=== PATIENT | female | born 1995 | race Two or more races ===

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

== ENCOUNTER 2018-03-03 17:32 | Emergency (ER) | payer SELFPAY ==
[~2018-03-03] VITALS: Ht 157.5 cm; Wt 78.9 kg
[~2018-03-03 17:32] MED LIST changes: +AUGMENTIN 875-1 EAC1 ORAL
[2018-03-03] MEDS ORDERED: Dicyclomine HCl 10mg/5ml oral soln ORAL ONE (18:15)
[2018-03-03] MEDS ORDERED: Lidocaine 2% Visc 15ml soln ORAL ONE (18:15)
[2018-03-03] MEDS ORDERED: Mylanta II UD 30ml ORAL ONE (18:15)
--- NOTE | 2018-03-03 18:21 | NUR ---
ED Nurse Note: Pt came into the ER for n, v, d x 3 days. Pt is complaiing of 8/10 abdominal pain non radiating. Pt is A+O x4. Ambulatory. Pt states that she believes it is from what she ate.
[2018-03-03 18:28] VITALS: BP 109/73
--- NOTE | 2018-03-03 18:37 | NUR ---
ED Nurse Note: Blood and urine has been collected and sent to lab. Family at the bedside.
[2018-03-03 18:45] LABS: BASOPHILS % (AUTO) 0.7 % (0.0-2.0); EOSINOPHILS % (AUTO) 0.8 % (0.0-3.0); HEMATOCRIT 41.5 % (37.0-47.0); HEMOGLOBIN 13.2 G/DL (12.0-16.0); LYMPHOCYTES % (AUTO) 29.2 % (20.0-45.0); MEAN CORPUSCULAR VOLUME 87 FL (80-99); MONOCYTES % (AUTO) 6.2 % (1.0-10.0); NEUTROPHILS % (AUTO) 63.1 % (45.0-75.0); PLATELET COUNT 301 K/UL (150-450); RED BLOOD COUNT 4.79 M/UL (4.20-5.40); RED CELL DISTRIBUTION WIDTH 13.5 % (11.6-14.8); WHITE BLOOD COUNT 10.5 K/UL (4.8-10.8)
[2018-03-03 18:51] LABS: ANION GAP 11 mmol/L (5-15); BLOOD UREA NITROGEN 9 mg/dL (7-18); CALCIUM 9.6 MG/DL (8.5-10.1); CARBON DIOXIDE 26 MMOL/L (21-32); CHLORIDE 101 MMOL/L (98-107); CREATININE 0.8 MG/DL (0.55-1.30); POTASSIUM 3.9 MMOL/L (3.5-5.1); SODIUM 138 MMOL/L (136-145)
[2018-03-03 18:56] LABS: APPEARANCE,URINE CLEAR; BILIRUBIN, URINE NEGATIVE (NEGATIVE); COLOR,URINE PALE YELLOW; GLUCOSE, URINE (UA) NEGATIVE (NEGATIVE); KETONES,URINE NEGATIVE (NEGATIVE); LEUKOCYTE ESTERASE ,URINE 1+ (NEGATIVE); NITRITE,URINE NEGATIVE (NEGATIVE); PH,URINE 6 (4.5-8.0); PROTEIN,URINE NEGATIVE (NEGATIVE); UROBILINOGEN,URINE NORMAL MG/DL (0.0-1.0)
--- NOTE | 2018-03-03 18:56 | NUR ---
ED Nurse Note: Notified by lab that pt is hcg neg.
[2018-03-03 18:57] LABS: ALANINE AMINOTRANSFERASE 57 U/L (12-78); ALBUMIN 4.1 G/DL (3.4-5.0); ALKALINE PHOSPHATASE 114 U/L (46-116); ASPARTATE AMINO TRANSFERASE 31 U/L (15-37); BILIRUBIN,TOTAL 0.3 MG/DL (0.2-1.0)
--- NOTE | 2018-03-03 19:05 | NUR ---
HAND-OFF: Report given to PATRICK Montalvo.
--- NOTE | 2018-03-03 19:08 | NUR ---
ED Nurse Note: Patient reports a residual pain level of 8/10, ERMD informed.
--- NOTE | 2018-03-03 19:24 | Emergency Room Report ---
History of Present Illness General Chief Complaint: Abdominal Pain Source: Patient Present Illness HPI 22-year-old female presents ED for evaluation. Patient walked in complaining of abdominal pain with vomiting and diarrhea. Started 3 days ago. Pain is cramping, 8 out of 10, nonradiating. Notes vomiting and multiple episodes of diarrhea. Denies chest pain or shortness of breath. Denies fevers or chills. Denies sick contacts or recent travel. Denies recent antibiotic use. No other aggravating relieving factors. Denies any other associated symptoms Allergies: Coded Allergies: No Known Allergies (Unverified , 11/11/14) Patient History Past Medical History: none Past Surgical History: none Pertinent Family History: none Social History: Denies: smoking, alcohol use, drug use Last Menstrual Period: 02/18/2018 Now: No : 0 Para: 0 Immunizations: UTD Reviewed Nursing Documentation: PMH: Agreed; PSxH: Agreed Nursing Documentation-PMH Past Medical History: No Stated History Review of Systems All Other Systems: negative except mentioned in HPI Physical Exam Vital Signs Date Time Temp Pulse Resp B/P (MAP) Pulse Ox O2 Delivery O2 Flow Rate FiO2 03/03/18 17:46 98.4 85 15 117/84 95 Room Air 03/03/18 18:28 100 Sp02 EP Interpretation: reviewed, normal General Appearance: no apparent distress, alert, GCS 15, non-toxic Head: normocephalic, atraumatic Eyes: bilateral eye normal inspection, bilateral eye PERRL ENT: hearing grossly normal, normal pharynx, no angioedema, normal voice Neck: full range of motion, supple/symm/no masses Respiratory: chest non-tender, lungs clear, normal breath sounds, speaking full sentences Cardiovascular #1: regular rate, rhythm, no edema Cardiovascular #2: 2+ carotid (R), 2+ carotid (L), 2+ radial (R), 2+ radial (L) , 2+ dorsalis pedis (R), 2+ dorsalis pedis (L) Gastrointestinal: normal bowel sounds, soft, non-distended, no guarding, no rebound, tenderness Rectal: deferred Genitourinary: normal inspection, no CVA tenderness Musculoskeletal: back normal, gait/station normal, normal range of motion, non- tender Neurologic: alert, oriented x3, responsive, motor strength/tone normal, sensory intact, speech normal Psychiatric: judgement/insight normal, memory normal, mood/affect normal, no suicidal/homicidal ideation Reflexes: 3+ bicep (R), 3+ bicep (L), 3+ tricep (R), 3+ tricep (L), 3+ knee (R) , 3+ knee (L) Skin: normal color, no rash, warm/dry, well hydrated Lymphatic: no adenopathy Medical Decision Making Diagnostic Impression: Primary Impression: Abdominal pain Qualified Codes: R10.30 - Lower abdominal pain, unspecified Additional Impressions: UTI (urinary tract infection) Qualified Codes: N30.00 - Acute cystitis without hematuria Gastroenteritis ER Course Hospital Course 22 yo F presents with abd pain with vomiting, diarrhea Differential diagnosis includes-appendicitis, cholecystitis, small bowel obstruction, gastritis, Clinical course Patient placed on stretcher. After initial history and physical I ordered labs , IV fluids, pain medications, zofran, pepcid Labs - no leukocytosis, electrolytes ok, LFTs normal, UA some bacteria On reassessment patient continues to have pain in suprapubic area. With guarding. CT ordered CT scan some thickening/distension to the bladder Patient does document history of increased urinary frequency. We'll treat clinically as UTI. Safe for discharge and close outpatient follow-up I feel this is a highly complex case requiring extensive working including EKG/ Rhythm strip, Xray/CT/US, Blood/urine lab work, repeat exams while in ED, and administration of strong opiates/narcotics for pain control, admission to hospital or close patient follow up. Diagnosis - abdominal pain, UTI, gastroenteritis Stable and discharged to home with Rx Zofran, Bentyl, zantac, keflex. Followup with PMD. Return to ED if symptoms recur or worsen Labs Test 03/03/18 18:30 White Blood Count 10.5 K/UL (4.8-10.8) Red Blood Count 4.79 M/UL (4.20-5.40) Hemoglobin 13.2 G/DL (12.0-16.0) Hematocrit 41.5 % (37.0-47.0) Mean Corpuscular Volume 87 FL (80-99) Mean Corpuscular Hemoglobin 27.6 PG (27.0-31.0) Mean Corpuscular Hemoglobin Concent 31.9 G/DL (32.0-36.0) Red Cell Distribution Width 13.5 % (11.6-14.8) Platelet Count 301 K/UL (150-450) Mean Platelet Volume 5.7 FL (6.5-10.1) Neutrophils (%) (Auto) 63.1 % (45.0-75.0) Lymphocytes (%) (Auto) 29.2 % (20.0-45.0) Monocytes (%) (Auto) 6.2 % (1.0-10.0) Eosinophils (%) (Auto) 0.8 % (0.0-3.0) Basophils (%) (Auto) 0.7 % (0.0-2.0) Urine Color Pale yellow Urine Appearance Clear Urine pH 6 (4.5-8.0) Urine Specific [place] 1.015 (1.005-1.035) Urine Protein Negative (NEGATIVE) Urine Glucose (UA) Negative (NEGATIVE) Urine Ketones Negative (NEGATIVE) Urine Blood 1+ (NEGATIVE) Urine Nitrite Negative (NEGATIVE) Urine Bilirubin Negative (NEGATIVE) Urine Urobilinogen Normal MG/DL (0.0-1.0) Urine Leukocyte Esterase 1+ (NEGATIVE) Urine RBC 2-4 /HPF (0 - 2) Urine WBC 0-2 /HPF (0 - 2) Urine Squamous Epithelial Cells Few /LPF (NONE/OCC) Urine Bacteria Occasional /HPF (NONE) Sodium Level 138 MMOL/L (136-145) Potassium Level 3.9 MMOL/L (3.5-5.1) Chloride Level 101 MMOL/L (98-107) Carbon Dioxide Level 26 MMOL/L (21-32) Anion Gap 11 mmol/L (5-15) Blood Urea Nitrogen 9 mg/dL (7-18) Creatinine 0.8 MG/DL (0.55-1.30) Estimat Glomerular Filtration Rate > 60 mL/min (>60) Glucose Level 94 MG/DL (74-106) Calcium Level 9.6 MG/DL (8.5-10.1) Total Bilirubin 0.3 MG/DL (0.2-1.0) Aspartate Amino Transf (AST/SGOT) 31 U/L (15-37) Alanine Aminotransferase (ALT/SGPT) 57 U/L (12-78) Alkaline Phosphatase 114 U/L (46-116) Total Protein 8.2 G/DL (6.4-8.2) Albumin 4.1 G/DL (3.4-5.0) Globulin 4.1 g/dL Albumin/Globulin Ratio 1.0 (1.0-2.7) Lipase 110 U/L (73-393) Human Chorionic Gonadotropin, Qual Negative (NEGATIVE) CT/MRI/US Diagnostic Results CT/MRI/US Diagnostic Results : Imaging Test Ordered: CT A/P Impression Essentially unremarkable exam. Apparent bladder wall thickening is probably an artifact of under distention Last Vital Signs Date Time Temp Pulse Resp B/P (MAP) Pulse Ox O2 Delivery O2 Flow Rate FiO2 03/03/18 18:28 97.8 68 18 109/73 100 Room Air 03/03/18 18:28 100 Status: improved Disposition: HOME, SELF-CARE Condition: Stable Scripts Dicyclomine Hcl* (DICYCLOMINE HCL*) 10 Mg Capsule 10 MG PO QID for 5 Days, CAP Prov: Bret Carroll MD 03/03/18 Ranitidine Hcl* (ZANTAC*) 150 Mg Tablet 150 MG ORAL TWICE A DAY, #30 TAB Prov: Bret Carroll MD 03/03/18 Ondansetron Odt* (ZOFRAN ODT*) 4 Mg Tab.rapdis 4 MG BC EVERY 6 HOURS PRN for Nausea & Vomiting, #10 TAB 0 Refills Prov: Bret Carroll MD 03/03/18 Cephalexin* (KEFLEX*) 500 Mg Capsule 500 MG ORAL EVERY 6 HOURS for 7 Days, CAP Prov: Bret Carroll MD 03/03/18 Bret Carroll MD Mar 03, 2018 19:24
[2018-03-03] MEDS ORDERED: Morphine Sulfate 4mg/ml Inj (IV/IM USE ONLY) IVP ONE (19:30)
[2018-03-03] MEDS ORDERED: Isovue-300 100ml vial INJ PRN (19:30)
[2018-03-03] MEDS ORDERED: Ketorolac 30mg Inj IV ONE (19:30)
--- NOTE | 2018-03-03 19:36 | NUR ---
ED Nurse Note: Patient signed consent for contrast and was taken down for CT.
--- NOTE | 2018-03-03 21:31 | NUR ---
ED Nurse Note: Patient reports a return pain level of 4/10 at this time. She is resting quietly with her boyfriend at bedside.
[2018-03-03] MEDS ORDERED: CEPHALEXIN500 MG ORAL (21:43)
[2018-03-03] MEDS ORDERED: DICYCLOMINE HCL10 MG PO (21:43)
[2018-03-03] MEDS ORDERED: ONDANSETRON ODT4 MG BC (21:43)
[2018-03-03] MEDS ORDERED: RANITIDINE HCL150 MG ORAL (21:43)
--- NOTE | 2018-03-03 22:02 | NUR ---
ED Nurse Note: Patient cleared for discharge by Olamide Pope. Patient is awake, alert and oriented x4, patient is ambulatory with steady gait, no s/s of acute discomfort at this time. Patient IV and ID band was removed. Patient verbalized understanding of discharge instructions.
[2018-03-03 22:04] VITALS: BP 11/62
--- NOTE | 2018-03-04 11:07 | Diagnostic Imaging Report ---
Clinical Indication: Abdominal pain Technique: No oral contrast utilized, per emergency room physician request IV administration nonionic contrast. Venous phase spiral acquisition obtained through the abdomen and pelvis. Multiplanar reconstructions were generated. Total dose length product 799.75 mGycm. CTDIvol(s) 15.7 mGy. Dose reduction achieved using automated exposure control Comparison: 11/17/2015 Findings: The appendix is normal. No evidence of diverticulosis or diverticulitis. No small bowel distention. No free or loculated intraperitoneal gas or fluid is evident. Distal esophagus, stomach, duodenum are unremarkable. The liver demonstrates diffuse low-attenuation, consistent with fatty change, as well as more focal low-attenuation in the usual location adjacent to the falciform ligament consistent with more advanced focal fatty change. The gallbladder, bile ducts, pancreas, adrenals, kidneys are unremarkable., Previously demonstrated nephrographic abnormality is no longer evident. The spleen is unremarkable but demonstrates multiple accessory splenules. No retroperitoneal or mesenteric mass or adenopathy. No pelvic mass or adenopathy. Normal uterus and ovaries. Bladder wall appears mildly thickened, probably an artifact of under distention. The included lung bases demonstrate posterior dependent atelectatic changes. Calcified granuloma in the right middle lobe is again demonstrated The bones are unremarkable. Impression: Essentially unremarkable exam. 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 The CT scanner at [facility] is accredited by the [employer] and the scans are performed using protocols designed to limit radiation exposure to as low as reasonably achievable to attain images of sufficient resolution adequate for diagnostic evaluation.
== END 2018-03-03 22:07 | disposition home or self-care (01) ==
LOC: EMR 18:20
DX: R10.9 Unspecified abdominal pain (principal); N39.0 Urinary tract infection, site not specified; K52.9 Noninfective gastroenteritis and colitis, unspecified
CPT/HCPCS: 36415; 74177; 80053; 81003; 83690; 84703; 85025; 96361; 96374; 96375; 99284; J1885; J2270; J2405; Q9967; S0028

== ENCOUNTER 2018-09-16 13:51 | Emergency (ER) | payer SELFPAY ==
[~2018-09-16] VITALS: Ht 157.5 cm; Wt 81.6 kg
[~2018-09-16 13:51] MED LIST changes: +CEPHALEXIN500 MG ORAL; +DICYCLOMINE HCL10 MG PO; +ONDANSETRON ODT4 MG BC; +RANITIDINE HCL150 MG ORAL
[2018-09-16 14:00] VITALS: BP 126/89
[2018-09-16] MEDS ORDERED: DiphenhydrAMINE 50mg/ml Inj IVP ONE (14:15)
[2018-09-16] MEDS ORDERED: Morphine Sulfate 4mg/ml Inj (IV USE ONLY) IVP ONE ×2 (14:15→14:45)
[2018-09-16] MEDS ORDERED: Metoclopramide 10mg/2ml Inj IVP ONE (14:15)
--- NOTE | 2018-09-16 14:19 | Emergency Room Report ---
History of Present Illness General Chief Complaint: Abdominal Pain Source: Patient Present Illness HPI Patient presents with 2 days of suprapubic pain difficulty urinating and vomiting. She does not believe she is as she had a normal.. The pain is severe and she is been vomiting bilious material. Denies fevers or chills. She was drinking alcohol on Sunday but nothing yesterday and Sunday. She rates the pain 10/10 and constant. She does not believe she is . The pain is rated 10/10, aching and pressure and fairly constant. At times it gets worse. She has not taken any medication for the pain. No chest pain, palpitations, diarrhea, shortness of breath, depression, visual changes, headache. Seen in 2014 and [address] February 2018 - no surgical pathology. 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: 08/17/2018 Now: No Reviewed Nursing Documentation: PMH: Agreed; PSxH: Agreed Nursing Documentation-PMH Past Medical History: No Stated History Review of Systems All Other Systems: negative except mentioned in HPI Physical Exam Vital Signs Date Time Temp Pulse Resp B/P (MAP) Pulse Ox O2 Delivery O2 Flow Rate FiO2 09/16/18 13:56 98.1 77 20 126/89 (101) 100 Room Air Sp02 EP Interpretation: reviewed, normal General Appearance: well appearing, GCS 15, non-toxic, mild distress Head: normocephalic Eyes: bilateral eye normal inspection, bilateral eye PERRL, bilateral eye EOMI ENT: moist mucus membranes Neck: supple Respiratory: lungs clear, normal breath sounds Cardiovascular #1: regular rate, rhythm Cardiovascular #2: 2+ radial (R) Gastrointestinal: normal inspection, normal bowel sounds, no mass, non- distended, no guarding, no rebound, tenderness - Suprapubic more right than left Genitourinary: no CVA tenderness, deferred - For ultrasound Musculoskeletal: back normal, gait/station normal, normal range of motion Neurologic: alert, oriented x3, grossly normal Psychiatric: anxious Skin: no rash Medical Decision Making Diagnostic Impression: Primary Impression: Abdominal pain Qualified Codes: R10.31 - Right lower quadrant pain Additional Impressions: Ovarian cysts Mesenteric adenitis ER Course Patient presents with suprapubic pain and vomiting. Differential includes ectopic , threatened miscarriage, gastroenteritis, urinary tract infection, ruptured ovarian cyst, ovarian torsion amongst others. The patient will be evaluated with ultrasound and labs. The patient will be treated with metoclopramide, Benadryl and morphine and IV hydration. WBC elevated. US with ovarian cysts. Pain RLQ now. Need CT abdomen. CT with mesenteric adenitis. Improved pain. Discussed results and outpatient observation. Also discussed the importance of following up with her own doctor. Patient stable for outpatient observation and treatment. Laboratory Tests Test 09/16/18 14:10 09/16/18 15:35 White Blood Count 15.7 K/UL (4.8-10.8) H Red Blood Count 4.45 M/UL (4.20-5.40) Hemoglobin 12.7 G/DL (12.0-16.0) Hematocrit 39.9 % (37.0-47.0) Mean Corpuscular Volume 90 FL (80-99) Mean Corpuscular Hemoglobin 28.6 PG (27.0-31.0) Mean Corpuscular Hemoglobin Concent 31.9 G/DL (32.0-36.0) L Red Cell Distribution Width 12.7 % (11.6-14.8) Platelet Count 344 K/UL (150-450) Mean Platelet Volume 5.7 FL (6.5-10.1) L Neutrophils (%) (Auto) % (45.0-75.0) Lymphocytes (%) (Auto) % (20.0-45.0) Monocytes (%) (Auto) % (1.0-10.0) Eosinophils (%) (Auto) % (0.0-3.0) Basophils (%) (Auto) % (0.0-2.0) Differential Total Cells Counted 100 Neutrophils % (Manual) 79 % (45-75) H Lymphocytes % (Manual) 10 % (20-45) L Monocytes % (Manual) 4 % (1-10) Eosinophils % (Manual) 0 % (0-3) Basophils % (Manual) 0 % (0-2) Band Neutrophils 7 % (0-8) Platelet Estimate Adequate Platelet Morphology Normal Red Blood Cell Morphology Normal Sodium Level 138 MMOL/L (136-145) Potassium Level 3.5 MMOL/L (3.5-5.1) Chloride Level 102 MMOL/L (98-107) Carbon Dioxide Level 23 MMOL/L (21-32) Anion Gap 13 mmol/L (5-15) Blood Urea Nitrogen 13 mg/dL (7-18) Creatinine 0.8 MG/DL (0.55-1.30) Estimate Glomerular Filtration Rate > 60 mL/min (>60) Glucose Level 132 MG/DL (74-106) H Calcium Level 9.6 MG/DL (8.5-10.1) Total Bilirubin 0.5 MG/DL (0.2-1.0) Aspartate Amino Transferase (AST) 30 U/L (15-37) Alanine Aminotransferase (ALT) 49 U/L (12-78) Alkaline Phosphatase 103 U/L (46-116) Total Protein 8.2 G/DL (6.4-8.2) Albumin 4.9 G/DL (3.4-5.0) Globulin 3.3 g/dL Albumin/Globulin Ratio 1.5 (1.0-2.7) Lipase 92 U/L (73-393) Urine Color Pale yellow Urine Appearance Clear Urine pH 8 (4.5-8.0) Urine Specific [place] 1.010 (1.005-1.035) Urine Protein 1+ (NEGATIVE) H Urine Glucose (UA) Negative (NEGATIVE) Urine Ketones 3+ (NEGATIVE) H Urine Blood 4+ (NEGATIVE) H Urine Nitrite Negative (NEGATIVE) Urine Bilirubin Negative (NEGATIVE) Urine Urobilinogen Normal MG/DL (0.0-1.0) Urine Leukocyte Esterase Negative (NEGATIVE) Urine RBC 2-4 /HPF (0 - 2) H Urine WBC 0 /HPF (0 - 2) Urine Squamous Epithelial Cells Occasional /LPF Urine Amorphous Sediment Few /LPF (NONE) H Urine Bacteria Occasional /HPF (NONE) Urine HCG, Qualitative Negative (NEGATIVE) CT/MRI/US Diagnostic Results CT/MRI/US Diagnostic Results #1: Imaging Test Ordered: Pelvic ultrasound Impression Bilateral ovarian cysts CT/MRI/US Diagnostic Results #2: Imaging Test Ordered: abd pelvis Impression Normal appendix. Scattered small mesenteric lymph nodes which are likely reactive. Consideration of mesenteric adenitis. Unremarkable pelvic structures. Last Vital Signs Date Time Temp Pulse Resp B/P (MAP) Pulse Ox O2 Delivery O2 Flow Rate FiO2 09/16/18 19:05 98.0 67 17 101/81 94 Room Air Status: improved Disposition: HOME, SELF-CARE Condition: Improved Scripts Ondansetron Odt* (ZOFRAN ODT*) 4 Mg Tab.rapdis 4 MG BC EVERY 8 HOURS, #6 TAB 0 Refills Prov: Harry Romano MD 09/16/18 Ibuprofen* (MOTRIN*) 600 Mg Tablet 600 MG ORAL Q6H PRN for For Pain, #14 TAB 0 Refills Prov: Harry Romano MD 09/16/18 Tramadol Hcl* (ULTRAM*) 50 Mg Tablet 50 MG ORAL Q6H PRN for For Pain, #10 TAB 0 Refills Prov: Harry Romano MD 09/16/18 Harry Romano MD Sep 16, 2018 14:19
--- NOTE | 2018-09-16 14:30 | NUR ---
ED Nurse Note: pt walked in due to abdominal pain accompanied by vomiting started 7am this morning. pt stated she ate ceviche last night and started to have upset stomach and decided to go home to sleep and when she woke up the pain started. pt is seen by papo. will continue to monitor.
[2018-09-16 14:33] LABS: HEMATOCRIT 39.9 % (37.0-47.0); HEMOGLOBIN 12.7 G/DL (12.0-16.0); MEAN CORPUSCULAR VOLUME 90 FL (80-99); PLATELET COUNT 344 K/UL (150-450); RED BLOOD COUNT 4.45 M/UL (4.20-5.40); RED CELL DISTRIBUTION WIDTH 12.7 % (11.6-14.8); WHITE BLOOD COUNT 15.7 K/UL (4.8-10.8)
[2018-09-16 14:43] LABS: ANION GAP 13 mmol/L (5-15); BLOOD UREA NITROGEN 13 mg/dL (7-18); CALCIUM 9.6 MG/DL (8.5-10.1); CARBON DIOXIDE 23 MMOL/L (21-32); CHLORIDE 102 MMOL/L (98-107); CREATININE 0.8 MG/DL (0.55-1.30); POTASSIUM 3.5 MMOL/L (3.5-5.1); SODIUM 138 MMOL/L (136-145)
[2018-09-16 14:47] LABS: ALANINE AMINOTRANSFERASE 49 U/L (12-78); ALBUMIN 4.9 G/DL (3.4-5.0); ALBUMIN/GLOBULIN RATIO 1.5 (1.0-2.7); ALKALINE PHOSPHATASE 103 U/L (46-116); ASPARTATE AMINO TRANSFERASE 30 U/L (15-37); BILIRUBIN,TOTAL 0.5 MG/DL (0.2-1.0)
--- NOTE | 2018-09-16 14:50 | NUR ---
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
--- NOTE | 2018-09-16 14:56 | NUR ---
ED Nurse Note: pt complains of 10/10 abdominal pain. pt stated first morphine didnt help. ermd made aware, iv morphine given. pt able to tolerate meds. will continue to monitor.
[2018-09-16 15:20] VITALS: BP 101/81
[2018-09-16] MEDS ORDERED: Isovue-300 100ml vial INJ PRN (15:45)
--- NOTE | 2018-09-16 15:50 | NUR ---
ED Nurse Note: pt went to ct with tech
--- NOTE | 2018-09-16 16:00 | NUR ---
ED Nurse Note: pt wentback from ct with tech
[2018-09-16 16:05] LABS: APPEARANCE,URINE CLEAR; BILIRUBIN, URINE NEGATIVE (NEGATIVE); COLOR,URINE PALE YELLOW; GLUCOSE, URINE (UA) NEGATIVE (NEGATIVE); KETONES,URINE 3+ (NEGATIVE); LEUKOCYTE ESTERASE ,URINE NEGATIVE (NEGATIVE); NITRITE,URINE NEGATIVE (NEGATIVE); PH,URINE 8 (4.5-8.0); PROTEIN,URINE 1+ (NEGATIVE); UROBILINOGEN,URINE NORMAL MG/DL (0.0-1.0)
--- NOTE | 2018-09-16 16:15 | Diagnostic Imaging Report ---
Indication: Pelvic pain, negative test, vaginal bleeding Technique: Transabdominal and transvaginal images of the pelvis. Doppler interrogation of the bilateral ovaries Comparison: none Findings: Uterus measures 6.8 cm length by 2.8 cm AP. The endometrium measures 3 mm thick. No myometrial abnormality. A small nabothian cyst is incidentally noted. The right ovary measures 3.9 cm length. The left ovary measures 3.1 cm length. No adnexal mass demonstrated. No free cul-de-sac fluid Impression: Essentially unremarkable exam Incidental finding small nabothian cyst
[2018-09-16] MEDS ORDERED: ONDANSETRON ODT4 MG BC (18:37)
[2018-09-16] MEDS ORDERED: IBUPROFEN600 MG ORAL (18:37)
[2018-09-16] MEDS ORDERED: TRAMADOL HCL50 MG ORAL (18:37)
[2018-09-16 19:05] VITALS: BP 101/81
--- NOTE | 2018-09-16 19:05 | NUR ---
ER DISCHARGE NOTE: Patient is cleared to be discharged per ERMD, pt is aox4, on room air, with stable vital signs. pt was given dc and prescription instructions, pt was able to verbalize understanding, pt id band and iv site removed without complications. pt is able to ambulate with steady gait. pt took all belongings.
--- NOTE | 2018-09-17 09:44 | Diagnostic Imaging Report ---
Clinical Indication: Abdominal pain, 2 days of suprapubic pain, difficulty urinating, and vomiting Technique: No oral contrast utilized, per emergency room physician request IV administration nonionic contrast. Venous phase spiral acquisition obtained through the abdomen and pelvis. Multiplanar reconstructions were generated. Total dose length product 877.11 mGycm. CTDIvol(s) 16.58 mGy. Dose reduction achieved using automated exposure control Comparison: 03/03/2018 Findings: The appendix is normal. There is no evidence of diverticulosis or diverticulitis. No small bowel distention. No free or loculated intraperitoneal gas or fluid is evident. Distal esophagus, stomach, duodenum are unremarkable. No free or loculated intraperitoneal gas or fluid is evident. The liver is mildly hypoattenuating, consistent with fatty change, also previously demonstrated. The gallbladder, bile ducts, pancreas are unremarkable. The spleen is unremarkable except that there are multiple accessory splenules. The kidneys are unremarkable. No renal or ureteral calculi, hydronephrosis, or hydroureter are demonstrated. No retroperitoneal or mesenteric mass or adenopathy. No pelvic mass or adenopathy. Uterus and ovaries are unremarkable. The bladder is unremarkable. The included lung bases are clear. The bones are unremarkable. Impression: No acute abnormality. No findings to explain stated clinical history of suprapubic pain, difficulty urinating, or vomiting Fatty liver, also previously described This agrees with the preliminary interpretation provided overnight by [facility] teleradiology service. The CT scanner at [facility] is accredited by the [employer] and the scans are performed using protocols designed to limit radiation exposure to as low as reasonably achievable to attain images of sufficient resolution adequate for diagnostic evaluation.
== END 2018-09-16 19:05 | disposition home or self-care (01) ==
LOC: EMR 18:20
DX: R10.31 Right lower quadrant pain (principal); I88.0 Nonspecific mesenteric lymphadenitis; N88.8 Other specified noninflammatory disorders of cervix uteri
CPT/HCPCS: 36415; 74177; 76830; 76856; 80053; 81003; 81025; 83690; 85007; 85025; 96361; 96374; 96375; 99284; J1200; J2270; J2765; Q9967

== ENCOUNTER 2019-08-31 13:35 | Emergency (ER) | payer SELFPAY ==
[~2019-08-31] VITALS: Ht 157.5 cm; Wt 68.0 kg
[~2019-08-31 13:35] MED LIST changes: +TRAMADOL HCL50 MG ORAL
[2019-08-31] MEDS ORDERED: Omnipaque-300 100ml vial INJ PRN (13:45)
[2019-08-31] MEDS ORDERED: Ketorolac 30mg Inj IV ONE (13:45)
[2019-08-31 13:58] LABS: HEMOGLOBIN 12.8 G/DL (12.0-16.0); MEAN CORPUSCULAR VOLUME 94 FL (80-99); PLATELET COUNT 346 K/UL (150-450); RED BLOOD COUNT 4.47 M/UL (4.20-5.40); RED CELL DISTRIBUTION WIDTH 12.4 % (11.6-14.8); WHITE BLOOD COUNT 13.3 K/UL (4.8-10.8)
[2019-08-31] MEDS ORDERED: DiphenhydrAMINE 50mg/ml Inj IVP ONE (14:00)
[2019-08-31 14:05] VITALS: BP 137/77
[2019-08-31 14:09] LABS: INR 0.9 (0.9-1.1)
--- NOTE | 2019-08-31 14:20 | NUR ---
ED Nurse Note: Pt brought in by ambulanlce today for N&V since this morning. Pt states may be r/t tacos from last night. She denies alcohol or substance abuse. Pt is alert&ox4, weak. She is actively vomiting yellow vomit and wretching. Pain 10/10 lower abdomen.
[2019-08-31 14:31] LABS: ANION GAP 12 mmol/L (5-15); BLOOD UREA NITROGEN 11 mg/dL (7-18); CALCIUM 9.2 MG/DL (8.5-10.1); CARBON DIOXIDE 26 MMOL/L (21-32); CHLORIDE 103 MMOL/L (98-107); CREATININE 0.8 MG/DL (0.55-1.30); POTASSIUM 3.5 MMOL/L (3.5-5.1); SODIUM 141 MMOL/L (136-145)
[2019-08-31 14:35] LABS: ALANINE AMINOTRANSFERASE 25 U/L (12-78); ALBUMIN 4.3 G/DL (3.4-5.0); ALKALINE PHOSPHATASE 100 U/L (46-116); ASPARTATE AMINO TRANSFERASE 23 U/L (15-37); BILIRUBIN,TOTAL 0.2 MG/DL (0.2-1.0)
[2019-08-31] MEDS ORDERED: Metoclopramide 10mg/2ml Inj IVP ONE (15:00)
[2019-08-31] MEDS ORDERED: Morphine Sulfate 2mg/ml Inj(IV/IM USE ONLY) IVP ONE (15:00)
[2019-08-31 15:37] LABS: APPEARANCE,URINE SLIGHTLY CLOUDY; BILIRUBIN, URINE NEGATIVE (NEGATIVE); COLOR,URINE PALE YELLOW; GLUCOSE, URINE (UA) NEGATIVE (NEGATIVE); KETONES,URINE 1+ (NEGATIVE); LEUKOCYTE ESTERASE ,URINE NEGATIVE (NEGATIVE); NITRITE,URINE NEGATIVE (NEGATIVE); PH,URINE 9 (4.5-8.0); PROTEIN,URINE NEGATIVE (NEGATIVE); UROBILINOGEN,URINE NORMAL MG/DL (0.0-1.0)
[2019-08-31 16:04] VITALS: BP 129/75
--- NOTE | 2019-08-31 18:07 | Diagnostic Imaging Report ---
EXAM: US Abdomen Limited, Right Upper Quadrant CLINICAL HISTORY: PAIN TECHNIQUE: Real-time ultrasound of the right upper quadrant with image documentation. COMPARISON: Same day CT abdomen and pelvis FINDINGS: Liver: Focal fatty infiltration in the region of the falciform ligament, a common and likely incidental, insignificant finding. Otherwise normal liver. Liver 15.2 cm No intrahepatic bile duct dilation. Gallbladder: Unremarkable. No gallstones. Common bile duct: CBD 0.3 cm No stones. No dilation. Pancreas: Obscured. Right kidney: Right kidney 12 cm No stones. No hydronephrosis. Other findings: Unremarkable study. GB wall 0.2 cm IMPRESSION: 1. No acute abnormality definitively identified to account for patient presentation. 2. Unremarkable study.
--- NOTE | 2019-08-31 18:10 | Diagnostic Imaging Report ---
EXAM: CT Abdomen and Pelvis With Intravenous Contrast CLINICAL HISTORY: ABD PAIN TECHNIQUE: Axial computed tomography images of the abdomen and pelvis with intravenous contrast. CTDI is 5.5 mGy and DLP is 290 mGy-cm. One or more of the following dose reduction techniques were used: automated exposure control, adjustment of the mA and/or kV according to patient size, use of iterative reconstruction technique. Coronal and sagittal reformatted images were created and reviewed. COMPARISON: 09/16/18 FINDINGS: Lung bases: Unremarkable. No mass. No consolidation. ABDOMEN: Liver: Unremarkable. No mass. Gallbladder and bile ducts: Unremarkable. No calcified stones. No ductal dilation. Pancreas: Unremarkable. No mass. No ductal dilation. Spleen: Unremarkable. No splenomegaly. Adrenals: Unremarkable. No mass. Kidneys and ureters: Unremarkable. No solid mass. No hydronephrosis. Stomach and bowel: Ascending colon wall thickening could represent colitis. No obstruction. PELVIS: Appendix: Normal appendix. Bladder: Unremarkable. No mass. Reproductive: Unremarkable as visualized. ABDOMEN and PELVIS: Intraperitoneal space: Unremarkable. No free air. No significant fluid collection. Bones/joints: No acute fracture. No dislocation. Soft tissues: Unremarkable. Vasculature: Unremarkable. No abdominal aortic aneurysm. Lymph nodes: Prominent mesenteric lymph nodes. This could be incidental, reactive, or could represent mesenteric adenitis in the proper context. Similar numerous small retroperitoneal nodes, likely incidental. No other adenopathy. IMPRESSION: 1. Ascending colon wall thickening could represent colitis. 2 Prominent mesenteric lymph nodes. This could be incidental, reactive, or could represent mesenteric adenitis in the proper context. 3 Normal appendix. 4. Otherwise no acute abnormality definitively identified to account for patient presentation.
--- NOTE | 2019-08-31 18:18 | Emergency Room Report ---
History of Present Illness General Chief Complaint: Abdominal Pain Source: Patient Present Illness HPI 24-year-old female with no significant past medical history is here in the waiting room screaming with mother and family member that she has been nauseated and had severe abdominal pain. Mom is arguing with the paramedics that they should take care of her daughter before taking care of other patient and she is actively on the floor and nauseated. Patient has been here multiple times the past abdominal pain and has a history of marijuana abuse. Patient denies any marijuana use today. Complains of multiple bouts of nonbloody emesis and few bouts of nonbloody diarrhea. Denies fever and chills, cough and congestion, shortness of breath, headache and dizziness. Denies any urinary symptoms. Denies . Denies all other drug use and tobacco smoke. Denies alcohol intake. Allergies: Coded Allergies: No Known Allergies (Unverified , 11/11/14) COVID-19 Screening Contact w/high risk pt: No Recent Travel to affected area: No Experienced COVID-19 symptoms?: No COVID-19 Testing performed CAPTAIN ASSISTANT: No Patient History Past Medical History: see triage record Past Surgical History: none Pertinent Family History: none Last Menstrual Period: last month Now: No Immunizations: UTD Reviewed Nursing Documentation: PMH: Agreed; PSxH: Agreed Nursing Documentation-PMH Past Medical History: No Stated History Review of Systems All Other Systems: negative except mentioned in HPI Physical Exam Vital Signs Date Time Temp Pulse Resp B/P (MAP) Pulse Ox O2 Delivery O2 Flow Rate FiO2 08/31/19 13:47 96.3 67 20 144/79 (100) 100 Room Air 08/31/19 14:05 99 Sp02 EP Interpretation: reviewed, normal General Appearance: alert, GCS 15, non-toxic, mild distress Head: normocephalic, atraumatic Eyes: bilateral eye normal inspection, bilateral eye PERRL ENT: hearing grossly normal, normal pharynx, no angioedema, normal voice Neck: full range of motion, supple/symm/no masses Respiratory: chest non-tender, lungs clear, normal breath sounds, no rhonchi, no retraction, no wheezing, speaking full sentences Cardiovascular #1: regular rate, rhythm, no edema Cardiovascular #2: 2+ carotid (R), 2+ carotid (L), 2+ radial (R), 2+ radial (L) , 2+ femoral (R), 2+ femoral (L), 2+ dorsalis pedis (R), 2+ dorsalis pedis (L) Gastrointestinal: normal bowel sounds, non tender, soft, non-distended, no guarding, no rebound Rectal: deferred Genitourinary: no CVA tenderness Musculoskeletal: back normal, no lower extremity edema Neurologic: alert, motor strength/tone normal, oriented x3, sensory intact, responsive, speech normal Psychiatric: anxious Skin: no rash, palpation normal, normal color, warm/dry, normal turgor Lymphatic: no adenopathy Medical Decision Making PA Attestation All diagnoses and treatment plans were reviewed and discussed with my supervising physician Dr. Underwood Diagnostic Impression: Primary Impression: Cannabis hyperemesis syndrome concurrent with and due to cannabis abuse Additional Impression: UTI (urinary tract infection) ER Course 24-year-old female with no significant past medical history is here in the waiting room screaming with mother and family member that she has been nauseated and had severe abdominal pain. Mom is arguing with the paramedics that they should take care of her daughter before taking care of other patient and she is actively on the floor and nauseated. Patient has been here multiple times the past abdominal pain and has a history of marijuana abuse. Patient denies any marijuana use today. Complains of multiple bouts of nonbloody emesis and few bouts of nonbloody diarrhea. Denies fever and chills, cough and congestion, shortness of breath, headache and dizziness. Denies any urinary symptoms. Denies . Denies all other drug use and tobacco smoke. Denies alcohol intake. Ddx considered but are not limited to: appendicitis, cholecystis, gastritis, gastroenteritis, UTI, pyelonephritis, SBO, diverticulitis, influenza with GI manifestation, VT, complication with Vital signs: are WNL, pt. is afebrile H&PE are most consistent with: Cannabis hyperemesis, UTI ORDERS: abdominal CT, abdominal pain set, EKG, abdominal US, Phenergan, omeprazole, Tylenol, Macrobid ED INTERVENTIONS: NS bolus, Pepcid, Reglan, Phenergan, morphine, Toradol DISCHARGE: At this time pt. is stable for d/c to home. Will provide printed patient care instructions, and any necessary prescriptions. Care plan and follow up instructions have been discussed with the patient prior to discharge. Patient take medication as directed, follow primary care provider, avoid smoking marijuana, worsening symptoms return to the emergency room. EKG Diagnostic Results Rate: normal Rhythm: NSR ST Segments: no acute changes Other Impression No acute ST changes CT/MRI/US Diagnostic Results CT/MRI/US Diagnostic Results #1: Imaging Test Ordered: RUQ abd US Impression FINDINGS: Liver: Focal fatty infiltration in the region of the falciform ligament, a common and likely incidental, insignificant finding. Otherwise normal liver. Liver 15.2 cm No intrahepatic bile duct dilation. Gallbladder: Unremarkable. No gallstones. Common bile duct: CBD 0.3 cm No stones. No dilation. Pancreas: Obscured. Right kidney: Right kidney 12 cm No stones. No hydronephrosis. Other findings: Unremarkable study. GB wall 0.2 cm IMPRESSION: 1. No acute abnormality definitively identified to account for patient presentation. 2. Unremarkable study. CT/MRI/US Diagnostic Results #2: Imaging Test Ordered: CT abdomen pelvis with contrast Impression iver: Unremarkable. No mass. Gallbladder and bile ducts: Unremarkable. No calcified stones. No ductal dilation. Pancreas: Unremarkable. No mass. No ductal dilation. Spleen: Unremarkable. No splenomegaly. Adrenals: Unremarkable. No mass. Kidneys and ureters: Unremarkable. No solid mass. No hydronephrosis. Stomach and bowel: Ascending colon wall thickening could represent colitis. No obstruction. PELVIS: Appendix: Normal appendix. Bladder: Unremarkable. No mass. Reproductive: Unremarkable as visualized. ABDOMEN and PELVIS: Intraperitoneal space: Unremarkable. No free air. No significant fluid collection. Bones/joints: No acute fracture. No dislocation. Soft tissues: Unremarkable. Vasculature: Unremarkable. No abdominal aortic aneurysm. Lymph nodes: Prominent mesenteric lymph nodes. This could be incidental, reactive, or could represent mesenteric adenitis in the proper context. Similar numerous small retroperitoneal nodes, likely incidental. No other adenopathy. IMPRESSION: 1. Ascending colon wall thickening could represent colitis. 2 Prominent mesenteric lymph nodes. This could be incidental, reactive, or could represent mesenteric adenitis in the proper context. 3 Normal appendix. 4. Otherwise no acute abnormality definitively identified to account for patient presentation. Last Vital Signs Date Time Temp Pulse Resp B/P (MAP) Pulse Ox O2 Delivery O2 Flow Rate FiO2 08/31/19 16:04 96.3 96 17 129/75 100 Room Air 08/31/19 14:05 99 Disposition: HOME, SELF-CARE Condition: Stable Scripts Nitrofurantoin Monohyd/M-Cryst* (MACROBID 100 MG*) 100 Mg Capsule 100 MG ORAL EVERY 12 HOURS for 7 Days, #14 CAP Prov: Papo Purvis 08/31/19 Omeprazole (OMEPRAZOLE) 20 Mg Tablet.dr 20 MG ORAL DAILY, #30 TAB Prov: Papo Purvis 08/31/19 Acetaminophen* (TYLENOL EXTRA STRENGTH*) 500 Mg Tablet 500 MG ORAL Q8H PRN for Prn Headache/Temp > 101, #30 TAB 0 Refills Prov: Papo Purvis 08/31/19 Promethazine Hcl* (PHENERGAN*) 25 Mg Tablet 25 MG ORAL Q6H, #21 TAB 0 Refills Prov: Papo Purvis 08/31/19 Referrals: NOT CHOSEN IPA/,REFERRING (PCP) Patient Instructions: Abdominal Pain, Adult, Cannabis Use Disorder, Urinary Tract Infection, [id number] Additional Instructions: Take medication as directed, follow with your primary care provider, avoid smoking marijuana, if worsening symptoms return to the emergency room Papo Purvis Aug 31, 2019 18:18
[2019-08-31] MEDS ORDERED: PHENERGAN25 M1 ORAL (18:20)
[2019-08-31] MEDS ORDERED: TYLENOL EXTRA500 MG ORAL (18:20)
[2019-08-31] MEDS ORDERED: OMEPRAZOLE20 M3 ORAL (18:20)
[2019-08-31] MEDS ORDERED: NITROFURANTOIN100 M2 ORAL (18:20)
[2019-08-31 18:45] VITALS: BP 122/76
--- NOTE | 2019-08-31 18:45 | NUR ---
ER DISCHARGE NOTE: Patient is cleared to be discharged per ERMD, pt is aox4, on room air, with stable vital signs. pt was given dc and prescription instructions, pt was able to verbalize understanding, pt id band and iv site removed without complications. pt is able to ambulate with steady gait. pt took all belongings. Pt educated on abdominal pain.
== END 2019-08-31 18:45 | disposition home or self-care (01) ==
LOC: EMR 14:15
DX: F12.188 Cannabis abuse with other cannabis-induced disorder (principal); R11.10 Vomiting, unspecified; N39.0 Urinary tract infection, site not specified
CPT/HCPCS: 36415; 74177; 76705; 80053; 80307; 81003; 81025; 82962; 83690; 84484; 85007; 85025; 85610; 85730; 87086; 93005; 96361; 96374; 96375; 96376; 99284; G0480; J1200; J1885; J2270; J2550; J2765; J7030; Q9967